=== PATIENT | female | born 1935 | race Caucasian/White ===

== ENCOUNTER 2016-08-16 11:19 | Emergency (ER) | payer MEDICARE, BC ==
[2016-08-16 12:14] VITALS: BP 153/68
[2016-08-16] MEDS ORDERED: Sodium Chloride 0.9% 10 ML Syringe FLUSH PRN (12:36)
[2016-08-16 13:15] LABS: CHLORIDE,CL 103 mmol/L (101-111); SODIUM,NA 140 mmol/L (135-145)
[2016-08-16] MEDS ORDERED: Iopamidol 612 MG/ML 100 ML Bottle IVPUSH ONE (15:10)
--- NOTE | 2016-08-16 15:50 | CT ---
CLINICAL HISTORY: 81-year-old hypertensive 189 pound female who is 1 month after a second total orth opedic hip replacement now experiencing some abdominal pain and urinary incontinence. Previous hyste rectomy. SCAN TECHNIQUE: Volume acquisition of data from an emergency unenhanced CT scan of the abdomen and p mag obtained with the patient lying supine on the Siemens multislice CT scanner [place], [place]. All data archived in the PACS system for storage, reformatting and st udy. INTERPRETATION: 1. Bilateral total hip prostheses and associated extensive "hardening" artifact obscuring pelvis (an d urinary bladder). 2. Diverticula sigmoid colon lower abdomen without current signs of associated inflammation, i.e., n o inflammatory "dirty" peritoneal fat and no sign of abscess. 3. Densely calcified "cast" normal caliber but ectatic aortoiliac vessels. No aneurysm. 4. Normal gallbladder. Unenhanced liver, atrophic pancreas, adrenal glands and kidneys normal. 5. Scoliosis, multilevel disc disease and hypertrophic arthritic changes of the spine. 6. No abdominal mass lesion, mesenteric/retroperitoneal lymphadenopathy, signs of mechanical bowel o bstruction, ascites or free intraperitoneal air. 7. Normal cardiac silhouette. Lung bases clear. CONCLUSION: Sigmoid diverticulosis. Bilateral hip replacements. Abnormal lumbar spine.
--- NOTE | 2016-08-17 02:11 | ER ---
SUBJECTIVE: The patient is an 81-year-old, very pleasant female, who has had multiple hip and back pain. She has had surgery at low back and recent hip surgery. She has had ongoing pain and understands that she will but comes in today because she has had some urinary incontinence that does not stop, she wonders why. She has had her urine culture before, it was negative. They check for UTI. She denies any new changes besides the urinary incontinence, she denies any hematuria, dysuria, hesitation, or frequency. She denies any specific falls or trauma. She has been in physical therapy. She is afraid she might have hurt her back with the exercises and then she began having the problems with incontinence, the incontinence began yesterday. She states she lost complete control of her bladder functions multiple times and has had some incontinence. She denies any numbness, tingling, or weakness in her lower extremities bilaterally. She denies any bowel incontinence. She has normal bowel function, normal flatus, no bleeding, no melena or BRBPR. She denies any perineal or saddle numbness. She states she did have all of these symptoms previously with exception of the urinary incontinence, and when she went to a chiropractor, he "fixed her back right up," again, however, there was never any urinary incontinence at that time. She states that she did go to Dr. Kovacs and he set up for an MRI at the beginning of August and had checked her urine and was found to not have a UTI and cultures were negative per her report. She denies any fevers, chills, or any new back pain. No abdominal pain. No chest pain or shortness of breath. PAST MEDICAL HISTORY: Chronic back pain, osteoarthritis, hip surgery, cataracts with cataract surgery, tonsillectomy, hyperlipidemia, hypertension, GERD, IBS, diverticulitis, diverticulosis, colonoscopies, D and C, hysterectomy, bladder repair, knee replacement, bilateral knee and right hip replacement, hypothyroidism, anxiety, depression, and CREST syndrome. CURRENT MEDICATIONS: Include: 1. Diltiazem 360 mg p.o. daily. 2. Lorazepam 1 mg p.o. daily. 3. Synthroid 50 mcg p.o. daily. 4. Cozaar 50 mg p.o. daily. 5. Sertraline 150 mg p.o. daily. 6. Simvastatin 20 mg p.o. daily. 7. Tizanidine 4 mg p.o. daily. ALLERGIES: To iodine, does not recall why. Sulfa causes itching. CT dye causes sweating. Some sort of anesthesia drug for surgery causes hallucinations, she is unsure. SOCIAL HISTORY: No substance abuse. REVIEW OF SYSTEMS: No fever, chills, nausea, or vomiting. No new falls, assault, or trauma. No head trauma, syncope, or near syncope. No ENT issues, neck pain, chest pain, or shortness of breath. No nausea or vomiting. No dysuria, hematuria, or hesitation, but she does have the urinary incontinence. No bowel incontinence and normal bowel function without any melena, BRBPR, constipation, or diarrhea. She has no perineal or saddle or lower extremity numbness, weakness, or tingling. No other neurologic changes besides the urinary incontinence. No recent illness. Please see HPI. She was checked for UTI and it was negative and cultures were negative. OBJECTIVE: Vital Signs: Height is 1.6 m. Weight is 86.2 kg. She is afebrile. Heart rate is 86, blood pressure 153/68, respiratory rate 16, and oxygen is 98% on room air. General: Very pleasant, talkative, smiling, interactive, appears in no pain, in no distress at this time. She states she feels fairly well on lying down. It is when she gets up and puts weight on her back that it hurts. HEENT: She is normocephalic and atraumatic. A and O x3. GCS of 15. She is a good historian. Neck: Nontender. Chest: Clear. CV: RRR. Skin: Clear. Extremities: Good pulses at all 4 extremities. Abdomen: Soft, benign. Back: No CVAT. She does not really have any specific hip tenderness when palpating the ball and socket joint over the lateral trochanters, she states this when she gets up that she has pain when she bears weight. There are no signs of trauma or bruising or crepitus. She has no calf tenderness. No signs of DVT. EMERGENCY ROOM COURSE: An IV was placed. Labs and CAT scan were ordered. She remained stable. She was very comfortable as long as she held still. Therefore, she was not given any pain medications. LABORATORY DATA/STUDIES: White count was normal. She has no anemia, platelets are normal. Differential not remarkable. Her sed rate was normal at 18. Her CMP was quite non-remarkable. Her CRP was less than 0.5. Her urine was yellow and clear, negative for protein, for sugar ketones, nitrites, did have trace leukocyte esterase, and had moderate blood. Did have occasional bacteriuria, it was sent for culture. The last culture was just negative and was done a short time ago. Therefore, we elected to just culture the urine and not treat her with antibiotics and this was discussed with her and she also agreed with this line of thinking. I did discuss all of her labs and workup with her, including the CAT scan, which showed multiple chronic changes mostly arthritic changes, but no acute findings. No mass-effect, free air, abscess, or any specific reasons why she should have urinary incontinence. She states she is dealing with the urine incontinence by wearing the pins and she is able to deal with it, but just wondering why it is there. I did call Dr. Kovacs's nurse, Shanique, and I discussed the patient's presenting symptoms for workup and CAT scan and blood work in detail and the fact that MRI has already been ordered by Dr. Kovacs for this patient and perhaps they can be moved up earlier, perhaps tomorrow this week, so further evaluation could be performed. I also advised that we repeat the blood culture and urine culture in case there was a change. She will review all of this with Dr. Kovacs and fill him in. ASSESSMENT: 1. Urinary incontinence of uncertain etiology. Recent evaluation for urinary tract infection and urine cultures has been negative. Further urine cultures and blood cultures have been performed. For blood workup as well as noncontrasted abdominopelvic CT, not showing any cause for urinary incontinence. 2. Chronic low back pain and hip pain with hip replacement and significant osteoarthritis. PLAN: The patient's course will be discussed with Dr. Kovacs via Dr. Kovacs's nurse, Shainque, and I have advised the patient to please call Dr. Kovacs's office tomorrow or if not today, to see if the MRI and was able to be removed up further, possibly tomorrow or least this week. Stay with family, fall precautions. Continue with meds. Continue with the pins and hygiene. Thoroughly discussed all the workup with the patient and her son-in-law, who is with her and wished to help her find the cause of her incontinence, it could possibly be UTI but it is cultured again. We will follow up and see how this turns out. [facility] /[id number]
== END 2016-08-16 18:05 | disposition home or self-care (01) ==
LOC: DL.ED 11:19
DX: R32 Unspecified urinary incontinence (principal); M54.5 Low back pain; G89.29 Other chronic pain; M19.90 Unspecified osteoarthritis, unspecified site; I10 Essential (primary) hypertension; K21.9 Gastro-esophageal reflux disease without esophagitis; F41.9 Anxiety disorder, unspecified; F32.9 Major depressive disorder, single episode, unspecified; E03.9 Hypothyroidism, unspecified; Z88.2 Allergy status to sulfonamides; Z91.041 Radiographic dye allergy status; Z98.49 Cataract extraction status, unspecified eye; Z98.890 Other specified postprocedural states; Z90.710 Acquired absence of both cervix and uterus
CPT/HCPCS: 36415; 74176; 80053; 81001; 85025; 85651; 86140; 87040; 87086; 87088; 87186; 99284

== ENCOUNTER 2018-09-24 19:07 | Emergency (ER) | payer MEDICARE, BC ==
[2018-09-24 19:27] VITALS: BP 160/75
--- NOTE | 2018-09-24 19:51 | EDM.PDOC ---
ED HPI GENERAL MEDICAL PROBLEM - General Chief Complaint: Gastrointestinal Problem Stated Complaint: A LOT OF RECKTAL BLEEDING Time Seen by Provider: 09/24/18 19:48 Source of Information: Reports: Patient History Limitations: Reports: No Limitations - History of Present Illness INITIAL COMMENTS - FREE TEXT/NARRATIVE: states had few bouts of bloody stools today. last one was ok. gives h/o IBS. states her abd would rumble alot first then when she has a BM it will get bloody and dark. presently feeling ok. - Related Data Allergies Allergy/AdvReac Type Severity Reaction Status Date / Time Iodinated Contrast- Oral and Allergy Sweating Verified 09/24/18 19:19 IV Dye [Iodinated Contrast Media - Oral and] iodine Allergy Cannot Verified 09/24/18 19:19 Remember Sulfa (Sulfonamide Allergy Itching Verified 09/24/18 19:19 Antibiotics) some anasthesia drug Allergy Hallucinati Uncoded 09/24/18 19:19 ons Home Meds: Home Meds Diltiazem HCl [Taztia Xt] 360 mg PO DAILY 10/22/14 [History] LORazepam 1 mg PO DAILY 10/22/14 [History] Levothyroxine [Synthroid] 50 mcg PO ACBREAKFAST 10/22/14 [History] Losartan [Cozaar] 50 mg PO DAILY 10/22/14 [History] Sertraline HCl 200 mg PO DAILY 10/22/14 [History] tiZANidine HCl [Tizanidine HCl] 4 mg PO DAILY 08/16/16 [History] atorvaSTATin [Lipitor] 10 mg PO DAILY 09/24/18 [History] Past Medical History HEENT History: Reports: Cataract Cardiovascular History: Reports: High Cholesterol, Hypertension Gastrointestinal History: Reports: GERD, Hemorrhoids, Irritable Bowel Syndrome Other Gastrointestinal History: 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: Musculoskeletal History: Reports: Fracture, Osteoporosis Psychiatric History: Reports: Anxiety, Depression Endocrine/Metabolic History: Reports: Hypothyroidism Other Immunologic History: Crest syndrome - Past Surgical History HEENT Surgical History: Reports: Cataract Surgery, Tonsillectomy GI Surgical History: Reports: Colonoscopy Female Surgical History: Reports: D&C, Hysterectomy, Other (See Below) Other Female Surgeries/Procedures: bladder repair Musculoskeletal Surgical History: Reports: Knee Replacement, Other (See Below) Other Musculoskeletal Surgeries/Procedures:: sterling knee and Rt. hip replacement Social & Family History - Family History Family Medical History: Noncontributory - Tobacco Use Smoking Status *Q: Unknown Ever Smoked Second Hand Smoke Exposure: No - Caffeine Use Caffeine Use: Reports: Coffee Caffeine Use Comment: occassional - Recreational Drug Use Recreational Drug Use: No ED ROS GENERAL - Review of Systems Review Of Systems: ROS reveals no pertinent complaints other than HPI. ED EXAM, GI/ABD - Physical Exam Exam: See Below Exam Limited By: No Limitations General Appearance: Alert, WD/WN, No Apparent Distress Ears: Hearing Grossly Normal Throat/Mouth: Normal Voice, No Airway Compromise Head: Atraumatic Neck: Non-Tender, Full Range of Motion Respiratory/Chest: No Respiratory Distress Cardiovascular: Regular Rate, Rhythm GI/Abdominal Exam: Soft, Non-Tender, Other (BS hyper) Neurological: Alert, Oriented, Normal Cognition, Normal Gait, No Motor/Sensory Deficits Psychiatric: Normal Affect, Normal Mood Skin Exam: Warm, Dry, Normal Color Lymphatic: No Adenopathy Course - Vital Signs Last Recorded V/S: Last Vital Signs Temp 36.6 C 09/24/18 19:26 Pulse 81 09/24/18 19:26 Resp 18 09/24/18 19:26 BP 160/75 H 09/24/18 19:26 Pulse Ox 92 L 09/24/18 19:26 - Orders/Labs/Meds Labs: Laboratory Tests 09/24/18 09/24/18 09/24/18 Range/Units 19:56 19:56 19:56 WBC 9.5 (5.0-10.0) 10^3/uL RBC 4.48 (4.2-5.4) 10^6/uL Hgb 13.2 (12.0-16.0) g/dL Hct 40.0 (37.0-47.0) % MCV 89.3 (80-100) fL MCH 29.5 (27.0-34.0) pg MCHC 33.0 (33.0-35.0) g/dL Plt Count 169 (150-450) 10^3/uL Neut % (Auto) 69.7 (42.2-75.2) % Lymph % (Auto) 15.7 L (20.5-50.1) % Holmes % (Auto) 9.1 H (2-8) % Eos % (Auto) 5.0 H (1.0-3.0) % Baso % (Auto) 0.5 (0.0-1.0) % PT 10.8 (9.0-12.0) SEC INR 1.1 (0.9-1.2) APTT 27.2 (22.0-34.0) SEC Sodium 137 (135-145) mmol/L Potassium 3.8 (3.6-5.0) mmol/L Chloride 104 (101-111) mmol/L Carbon Dioxide 23.0 (21.0-31.0) mmol/L Anion Gap 13.8 BUN 18 (7-18) mg/dL Creatinine 0.7 (0.6-1.3) mg/dL Est Cr Clr Drug Dosing 51.26 mL/min Estimated GFR (MDRD) > 60 BUN/Creatinine Ratio 25.71 Glucose 114 H (74-105) mg/dL Lactic Acid (0.5-2.2) mmol/L Calcium 9.0 (8.4-10.2) mg/dl Total Bilirubin 0.5 (0.2-1.0) mg/dL AST 18 (10-42) IU/L ALT 14 (10-60) IU/L Alkaline Phosphatase 61 (42-121) IU/L Total Protein 6.2 L (6.7-8.2) g/dl Albumin 3.8 (3.2-5.5) g/dl Globulin 2.4 Albumin/Globulin Ratio 1.58 04/28/19 Range/Units 19:56 WBC (5.0-10.0) 10^3/uL RBC (4.2-5.4) 10^6/uL Hgb (12.0-16.0) g/dL Hct (37.0-47.0) % MCV (80-100) fL MCH (27.0-34.0) pg MCHC (33.0-35.0) g/dL Plt Count (150-450) 10^3/uL Neut % (Auto) (42.2-75.2) % Lymph % (Auto) (20.5-50.1) % Holmes % (Auto) (2-8) % Eos % (Auto) (1.0-3.0) % Baso % (Auto) (0.0-1.0) % PT (9.0-12.0) SEC INR (0.9-1.2) APTT (22.0-34.0) SEC Sodium (135-145) mmol/L Potassium (3.6-5.0) mmol/L Chloride (101-111) mmol/L Carbon Dioxide (21.0-31.0) mmol/L Anion Gap BUN (7-18) mg/dL Creatinine (0.6-1.3) mg/dL Est Cr Clr Drug Dosing mL/min Estimated GFR (MDRD) BUN/Creatinine Ratio Glucose (74-105) mg/dL Lactic Acid 1.5 (0.5-2.2) mmol/L Calcium (8.4-10.2) mg/dl Total Bilirubin (0.2-1.0) mg/dL AST (10-42) IU/L ALT (10-60) IU/L Alkaline Phosphatase (42-121) IU/L Total Protein (6.7-8.2) g/dl Albumin (3.2-5.5) g/dl Globulin Albumin/Globulin Ratio - Re-Assessments/Exams Free Text/Narrative Re-Assessment/Exam: 09/24/18 21:00 results discussed with pt & family. pt had BM no bleeding like before had small red spot on toilet paper while wiping. Departure - Departure Time of Disposition: 21:01 Disposition: Home, Self-Care 01 Condition: Good Clinical Impression: Internal hemorrhoid, bleeding IBS (irritable bowel syndrome) Qualifiers: Irritable bowel syndrome type: without diarrhea Qualified Code(s): K58.9 - Irritable bowel syndrome without diarrhea - Discharge Information Forms: ED Department Discharge Additional Instructions: 1) rest 2) have liquid diet for tonight 3) see family doctor tomorrow for COLONOSCOPY 4) recheck if there is any change or concern
[2018-09-24 20:22] LABS: ANION GAP 13.8; CHLORIDE,CL 104 mmol/L (101-111); SODIUM,NA 137 mmol/L (135-145)
== END 2018-09-24 21:09 | disposition home or self-care (01) ==
LOC: DL.ED 19:07
DX: K58.9 Irritable bowel syndrome, unspecified (principal); K64.8 Other hemorrhoids; I10 Essential (primary) hypertension; Z88.2 Allergy status to sulfonamides; Z88.8 Allergy status to other drugs, medicaments and biological substances; Z79.899 Other long term (current) drug therapy
CPT/HCPCS: 36415; 80053; 83605; 85025; 85610; 85730; 99283

== ENCOUNTER 2021-07-29 13:06 | Inpatient (IN) | payer MEDICARE, BC ==
[2021-07-29] MEDS ORDERED: Sodium Chloride 0.9% 10 ML Syringe FLUSH PRN (15:42)
[2021-07-29] MEDS ORDERED: Lidocaine 1% 30 ML SDV INJECT ONE (15:42)
[2021-07-29] MEDS ORDERED: diphenhydrAMINE 50 MG/ML SDV IVPUSH ONE (15:43)
[2021-07-29 16:32] LABS: ANION GAP 13.6 mEq/L (7-13); CHLORIDE,CL 104 mmol/L (98-107); ESTIMATED GFR > 60; SODIUM,NA 142 mmol/L (136-145)
[2021-07-29] MEDS ORDERED: Morphine 2 MG/ML SYRINGE IVPUSH PRN (18:54)
[2021-07-29] MEDS ORDERED: Ondansetron 4 MG Tab.DIS PO PRN (18:54)
[2021-07-29] MEDS ORDERED: oxyCODONE 5 MG Tab PO PRN (18:54)
[2021-07-29] MEDS ORDERED: Docusate Sodium 100 MG Cap PO PRN (18:54)
[2021-07-29] MEDS ORDERED: Piperacillin/Tazobactam 3.375 GM in Sodium Chloride 0.9% 100 ML IV SCH (19:15)
[2021-07-29] MEDS ORDERED: Piperacillin/Tazobactam 3.375 GM in Sodium Chloride 0.9% 100 ML IV ONE (20:00)
[2021-07-29 20:32] LABS: CORONAVIRUS COVID-19 NAA NEGATIVE (NEGATIVE); RESPIRATORY SYNCYTIAL VIR NAA NEGATIVE (NEGATIVE)
[2021-07-29] MEDS: Omeprazole 20 MG Cap.CR PO SCH (20:32)
[2021-07-29] MEDS: Losartan 50 MG Tab PO SCH (22:26)
[2021-07-29] MEDS: Acetaminophen 325 MG Tab PO PRN (22:30)
[2021-07-30] MEDS: Piperacillin/Tazobactam 2.25 GM in Sodium Chloride 0.9% 50 ML IV SCH ×4 (01:58→21:35)
[2021-07-30] MEDS: Omeprazole 20 MG Cap.CR PO SCH ×2 (05:57→21:36)
[2021-07-30] MEDS: Levothyroxine 50 MCG Tab PO SCH (06:03)
[2021-07-30] MEDS: Saccharomyces Boulardii (Probiotic) 250 MG Cap PO SCH (08:34)
[2021-07-30] MEDS: Diltiazem 180 MG Cap.CD PO SCH (08:34)
[2021-07-30] MEDS: Sertraline 50 MG Tab PO SCH (08:34)
[2021-07-30] MEDS: Enoxaparin 40 MG/0.4 ML Syringe SUBCUT SCH (08:35)
[2021-07-30] MEDS: Aspirin 81 MG Tab.EC PO SCH (08:35)
[2021-07-30] MEDS: Lactulose Soln 10 GM/15 ML 30 ML UD Cup PO SCH (08:35)
[2021-07-30] MEDS: LORazepam 1 MG Tab PO SCH (08:37)
[2021-07-30] MEDS ORDERED: Losartan 50 MG Tab PO SCH (09:00)
[2021-07-30] MEDS: Sodium Chloride 0.9% 10 ML Syringe FLUSH PRN (17:35)
[2021-07-30] MEDS: Losartan 50 MG Tab PO SCH (21:36)
[2021-07-31] MEDS: Acetaminophen 325 MG Tab PO PRN ×2 (02:01→21:21)
[2021-07-31] MEDS: Piperacillin/Tazobactam 2.25 GM in Sodium Chloride 0.9% 50 ML IV SCH ×4 (02:04→20:37)
[2021-07-31] MEDS: Levothyroxine 50 MCG Tab PO SCH (06:14)
[2021-07-31] MEDS: Omeprazole 20 MG Cap.CR PO SCH ×2 (06:14→20:43)
[2021-07-31] MEDS: Diltiazem 180 MG Cap.CD PO SCH (09:22)
[2021-07-31] MEDS: LORazepam 1 MG Tab PO SCH (09:22)
[2021-07-31] MEDS: Aspirin 81 MG Tab.EC PO SCH (09:23)
[2021-07-31] MEDS: Saccharomyces Boulardii (Probiotic) 250 MG Cap PO SCH (09:23)
[2021-07-31] MEDS: Sertraline 50 MG Tab PO SCH (09:23)
[2021-07-31] MEDS: Enoxaparin 40 MG/0.4 ML Syringe SUBCUT SCH (09:24)
[2021-07-31] MEDS: Lactulose Soln 10 GM/15 ML 30 ML UD Cup PO SCH (09:32)
[2021-07-31] MEDS: Losartan 50 MG Tab PO SCH (21:20)
[2021-08-01] MEDS: Piperacillin/Tazobactam 2.25 GM in Sodium Chloride 0.9% 50 ML IV SCH ×4 (02:35→20:44)
[2021-08-01] MEDS: Levothyroxine 50 MCG Tab PO SCH (05:28)
[2021-08-01] MEDS: Omeprazole 20 MG Cap.CR PO SCH ×2 (05:28→20:45)
[2021-08-01 06:52] LABS: ANION GAP 13.1 mEq/L (7-13); CHLORIDE,CL 108 mmol/L (98-107); ESTIMATED GFR > 60; SODIUM,NA 144 mmol/L (136-145)
[2021-08-01] MEDS: Enoxaparin 40 MG/0.4 ML Syringe SUBCUT SCH (07:59)
[2021-08-01] MEDS: LORazepam 1 MG Tab PO SCH (07:59)
[2021-08-01] MEDS: Diltiazem 180 MG Cap.CD PO SCH (08:00)
[2021-08-01] MEDS: Aspirin 81 MG Tab.EC PO SCH (08:01)
[2021-08-01] MEDS: Saccharomyces Boulardii (Probiotic) 250 MG Cap PO SCH (08:01)
[2021-08-01] MEDS: Sertraline 50 MG Tab PO SCH ×2 (08:01→21:21)
[2021-08-01] MEDS: Lactulose Soln 10 GM/15 ML 30 ML UD Cup PO SCH ×2 (08:01→08:04)
[2021-08-01] MEDS: Acetaminophen 325 MG Tab PO PRN ×2 (08:16→20:46)
[2021-08-01] MEDS ORDERED: Carboxymethylcellulose Sodium 1% Ophth Gel 0.4 ML UD EYEBOTH PRN (19:24)
[2021-08-01] MEDS: Losartan 50 MG Tab PO SCH (20:46)
[2021-08-02] MEDS: Piperacillin/Tazobactam 2.25 GM in Sodium Chloride 0.9% 50 ML IV SCH ×4 (02:09→20:19)
[2021-08-02] MEDS: Sodium Chloride 0.9% 10 ML Syringe FLUSH PRN ×2 (02:12→20:19)
[2021-08-02] MEDS: Levothyroxine 50 MCG Tab PO SCH (06:05)
[2021-08-02] MEDS: Omeprazole 20 MG Cap.CR PO SCH ×2 (06:05→20:21)
[2021-08-02] MEDS: Saccharomyces Boulardii (Probiotic) 250 MG Cap PO SCH (08:37)
[2021-08-02] MEDS: LORazepam 1 MG Tab PO SCH (08:37)
[2021-08-02] MEDS: Diltiazem 180 MG Cap.CD PO SCH (08:38)
[2021-08-02] MEDS: Aspirin 81 MG Tab.EC PO SCH (08:38)
[2021-08-02] MEDS: Enoxaparin 40 MG/0.4 ML Syringe SUBCUT SCH (08:39)
[2021-08-02] MEDS: Lactulose Soln 10 GM/15 ML 30 ML UD Cup PO SCH (08:39)
[2021-08-02] MEDS: Acetaminophen 325 MG Tab PO PRN ×2 (09:20→20:22)
[2021-08-02] MEDS: Losartan 50 MG Tab PO SCH (20:21)
[2021-08-02] MEDS: Sertraline 50 MG Tab PO SCH (20:21)
[2021-08-03] MEDS: Piperacillin/Tazobactam 2.25 GM in Sodium Chloride 0.9% 50 ML IV SCH ×4 (02:12→20:53)
[2021-08-03] MEDS: Acetaminophen 325 MG Tab PO PRN ×4 (05:05→21:31)
[2021-08-03] MEDS: Omeprazole 20 MG Cap.CR PO SCH ×2 (05:05→21:31)
[2021-08-03] MEDS: Levothyroxine 50 MCG Tab PO SCH (05:05)
[2021-08-03] MEDS: Sodium Chloride 0.9% 10 ML Syringe FLUSH PRN ×2 (07:57→13:28)
[2021-08-03] MEDS: Diltiazem 180 MG Cap.CD PO SCH (09:26)
[2021-08-03] MEDS: Saccharomyces Boulardii (Probiotic) 250 MG Cap PO SCH (09:27)
[2021-08-03] MEDS: LORazepam 1 MG Tab PO SCH (09:27)
[2021-08-03] MEDS: Aspirin 81 MG Tab.EC PO SCH (09:27)
[2021-08-03] MEDS: Lactulose Soln 10 GM/15 ML 30 ML UD Cup PO SCH (09:29)
[2021-08-03] MEDS: Enoxaparin 40 MG/0.4 ML Syringe SUBCUT SCH (09:29)
[2021-08-03] MEDS: Losartan 50 MG Tab PO SCH (21:31)
[2021-08-03] MEDS: Sertraline 50 MG Tab PO SCH (21:31)
[2021-08-03] MEDS: Loperamide 2 MG Cap PO PRN (21:31)
[2021-08-04] MEDS: Piperacillin/Tazobactam 2.25 GM in Sodium Chloride 0.9% 50 ML IV SCH ×4 (02:05→19:36)
[2021-08-04] MEDS: Levothyroxine 50 MCG Tab PO SCH (05:35)
[2021-08-04] MEDS: Omeprazole 20 MG Cap.CR PO SCH ×2 (05:35→20:51)
[2021-08-04] MEDS: Loperamide 2 MG Cap PO PRN ×2 (05:54→13:59)
[2021-08-04] MEDS: LORazepam 1 MG Tab PO SCH (08:36)
[2021-08-04] MEDS: Diltiazem 180 MG Cap.CD PO SCH (08:36)
[2021-08-04] MEDS: Enoxaparin 40 MG/0.4 ML Syringe SUBCUT SCH (08:36)
[2021-08-04] MEDS: Saccharomyces Boulardii (Probiotic) 250 MG Cap PO SCH ×2 (08:37→20:51)
[2021-08-04] MEDS: Aspirin 81 MG Tab.EC PO SCH (08:37)
[2021-08-04] MEDS: Lactulose Soln 10 GM/15 ML 30 ML UD Cup PO SCH (11:47)
[2021-08-04] MEDS: Acetaminophen 325 MG Tab PO PRN ×2 (13:14→19:27)
[2021-08-04] MEDS: Sodium Chloride 0.9% 10 ML Syringe FLUSH PRN ×3 (13:59→19:36)
[2021-08-04] MEDS: Sertraline 50 MG Tab PO SCH (20:51)
[2021-08-04] MEDS: Losartan 50 MG Tab PO SCH (20:51)
[2021-08-05] MEDS: Sodium Chloride 0.9% 10 ML Syringe FLUSH PRN ×3 (02:06→20:08)
[2021-08-05] MEDS: Piperacillin/Tazobactam 2.25 GM in Sodium Chloride 0.9% 50 ML IV SCH ×4 (02:07→20:08)
[2021-08-05] MEDS: Loperamide 2 MG Cap PO PRN ×2 (02:23→09:21)
[2021-08-05] MEDS: Omeprazole 20 MG Cap.CR PO SCH ×2 (05:09→20:52)
[2021-08-05] MEDS: Acetaminophen 325 MG Tab PO PRN ×3 (05:10→23:02)
[2021-08-05] MEDS: Levothyroxine 50 MCG Tab PO SCH (05:10)
[2021-08-05] MEDS: Enoxaparin 40 MG/0.4 ML Syringe SUBCUT SCH (09:11)
[2021-08-05] MEDS: Aspirin 81 MG Tab.EC PO SCH (09:12)
[2021-08-05] MEDS: LORazepam 1 MG Tab PO SCH (09:12)
[2021-08-05] MEDS: Saccharomyces Boulardii (Probiotic) 250 MG Cap PO SCH ×2 (09:12→20:52)
[2021-08-05] MEDS: Diltiazem 180 MG Cap.CD PO SCH (09:12)
[2021-08-05] MEDS: Calcium Carbonate 500 MG Tab.Chew PO PRN ×2 (17:53→23:02)
[2021-08-05] MEDS: Sertraline 50 MG Tab PO SCH (20:52)
[2021-08-05] MEDS: Losartan 50 MG Tab PO SCH (20:52)
[2021-08-06] MEDS: Sodium Chloride 0.9% 10 ML Syringe FLUSH PRN (01:47)
[2021-08-06] MEDS: Piperacillin/Tazobactam 2.25 GM in Sodium Chloride 0.9% 50 ML IV SCH ×3 (01:47→14:49)
[2021-08-06] MEDS: Loperamide 2 MG Cap PO PRN ×2 (03:06→09:19)
[2021-08-06] MEDS: Omeprazole 20 MG Cap.CR PO SCH (06:24)
[2021-08-06] MEDS: Levothyroxine 50 MCG Tab PO SCH (06:24)
[2021-08-06 07:23] LABS: CHLORIDE,CL 109 mmol/L (98-107); ESTIMATED GFR > 60; SODIUM,NA 145 mmol/L (136-145)
[2021-08-06] MEDS: Acetaminophen 325 MG Tab PO PRN (08:12)
[2021-08-06] MEDS: Saccharomyces Boulardii (Probiotic) 250 MG Cap PO SCH (08:15)
[2021-08-06] MEDS: LORazepam 1 MG Tab PO SCH (08:15)
[2021-08-06] MEDS: Diltiazem 180 MG Cap.CD PO SCH (08:15)
[2021-08-06] MEDS: Aspirin 81 MG Tab.EC PO SCH (08:16)
[2021-08-06] MEDS: Enoxaparin 40 MG/0.4 ML Syringe SUBCUT SCH (08:16)
[2021-08-06 12:17] VITALS: BP 116/51; PULSE 72
== END 2021-08-06 16:00 | disposition home health service (06) | DRG 603 ==
LOC: DL.ED 13:06 → DL.MS 18:13
PROVIDERS: ADMIT Internal Medicine; ATTEND Internal Medicine
PROC: 0H9HX0Z Drainage of Right Upper Leg Skin with Drainage Device, External Approach (ICD-10-PCS; principal; 2021-07-29)
DX: L02.415 Cutaneous abscess of right lower limb (principal); L03.115 Cellulitis of right lower limb; Z96.641 Presence of right artificial hip joint; E78.00 Pure hypercholesterolemia, unspecified; M34.1 CR(E)ST syndrome; E03.9 Hypothyroidism, unspecified; K58.9 Irritable bowel syndrome, unspecified; M81.0 Age-related osteoporosis without current pathological fracture; Z96.653 Presence of artificial knee joint, bilateral; I10 Essential (primary) hypertension; K21.9 Gastro-esophageal reflux disease without esophagitis; Z20.822 Contact with and (suspected) exposure to COVID-19; L89.151 Pressure ulcer of sacral region, stage 1; E78.5 Hyperlipidemia, unspecified; Z91.041 Radiographic dye allergy status; F32.A Depression, unspecified; F41.9 Anxiety disorder, unspecified; Z90.710 Acquired absence of both cervix and uterus; Z79.890 Hormone replacement therapy; Z79.82 Long term (current) use of aspirin; Z79.899 Other long term (current) drug therapy; Z90.89 Acquired absence of other organs; Z98.890 Other specified postprocedural states; Z88.2 Allergy status to sulfonamides; Z88.8 Allergy status to other drugs, medicaments and biological substances; Z87.19 Personal history of other diseases of the digestive system; Z98.42 Cataract extraction status, left eye; Z98.41 Cataract extraction status, right eye
CPT/HCPCS: 0241U; 10060; 36415; 73700; 76881; 80048; 80053; 80202; 83605; 85025; 85651; 86140; 87040; 87070; 87205; 96365; 96375; 97116; 97161; 99284; 99232; 99239; A9270-GY; J1200; J1650; J2543; J3370; J3490; J7050

== ENCOUNTER 2022-11-13 09:36 | Emergency (ER) | payer MEDICARE, BC ==
[2022-11-13 12:27] VITALS: BP 147/74; PULSE 83
== END 2022-11-13 12:22 | disposition home or self-care (01) ==
LOC: DL.ED 09:36
DX: S70.12XA Contusion of left thigh, initial encounter (principal); E78.00 Pure hypercholesterolemia, unspecified; I10 Essential (primary) hypertension; K21.9 Gastro-esophageal reflux disease without esophagitis; E03.9 Hypothyroidism, unspecified; Z91.041 Radiographic dye allergy status; Z88.2 Allergy status to sulfonamides; Z88.4 Allergy status to anesthetic agent; Z79.899 Other long term (current) drug therapy; Z79.82 Long term (current) use of aspirin; W01.0XXA Fall on same level from slipping, tripping and stumbling without subsequent striking against object, initial encounter
CPT/HCPCS: 73000-LT; 73030-LT; 99283

== ENCOUNTER 2023-08-15 05:27 | Day surgery (SDC) | payer MEDICARE, BC ==
[2023-08-15] MEDS ORDERED: fentaNYL 100 MCG/2 ML SDV IV ONE (05:28)
[2023-08-15] MEDS ORDERED: Midazolam 1 MG/ML 2 ML SDV IV ONE (05:28)
[2023-08-15] MEDS: Dextrose 5%-0.45% NaCl 1,000 ML IV SCH (06:04)
[2023-08-15] MEDS ORDERED: Midazolam 1 MG/ML 2 ML SDV ONE (06:08)
[2023-08-15] MEDS ORDERED: fentaNYL 100 MCG/2 ML SDV ONE (06:08)
[2023-08-15] MEDS: fentaNYL 100 MCG/2 ML SDV IV ONE ×2 (06:25→06:28)
[2023-08-15] MEDS: Midazolam 1 MG/ML 2 ML SDV IV ONE (06:26)
[2023-08-15 07:09] VITALS: PULSE 66
[2023-08-15 07:32] VITALS: BP 168/64
== END 2023-08-15 08:35 | disposition home or self-care (01) ==
LOC: DL.ENDO 05:27
PROVIDERS: ATTEND Internal Medicine Gastroenterology
DX: K63.5 Polyp of colon (principal); K57.30 Diverticulosis of large intestine without perforation or abscess without bleeding; I10 Essential (primary) hypertension; E78.5 Hyperlipidemia, unspecified; E03.9 Hypothyroidism, unspecified; D64.9 Anemia, unspecified; M19.90 Unspecified osteoarthritis, unspecified site; D63.8 Anemia in other chronic diseases classified elsewhere; Z88.9 Allergy status to unspecified drugs, medicaments and biological substances; Z91.041 Radiographic dye allergy status; Z88.5 Allergy status to narcotic agent
CPT/HCPCS: 87077; 88305; J2250; J3010; J7042

== ENCOUNTER 2023-08-16 05:31 | Day surgery (SDC) | payer MEDICARE, BC ==
[2023-08-16] MEDS ORDERED: fentaNYL 100 MCG/2 ML SDV IV ONE (05:32)
[2023-08-16] MEDS ORDERED: Midazolam 1 MG/ML 2 ML SDV IV ONE (05:32)
[2023-08-16] MEDS: Dextrose 5%-0.45% NaCl 1,000 ML IV SCH (05:51)
[2023-08-16] MEDS ORDERED: fentaNYL 100 MCG/2 ML SDV ONE (06:04)
[2023-08-16] MEDS ORDERED: Midazolam 1 MG/ML 2 ML SDV ONE (06:04)
[2023-08-16] MEDS: fentaNYL 100 MCG/2 ML SDV IV ONE ×3 (06:16→06:29)
[2023-08-16] MEDS: Midazolam 1 MG/ML 2 ML SDV IV ONE ×5 (06:19→06:38)
[2023-08-16 10:40] VITALS: BP 121/61; PULSE 85
== END 2023-08-16 09:15 | disposition home or self-care (01) ==
LOC: DL.ENDO 05:31
PROVIDERS: ATTEND Internal Medicine Gastroenterology
DX: K57.30 Diverticulosis of large intestine without perforation or abscess without bleeding (principal); D64.9 Anemia, unspecified; I10 Essential (primary) hypertension; M19.90 Unspecified osteoarthritis, unspecified site; E03.9 Hypothyroidism, unspecified; E78.5 Hyperlipidemia, unspecified; Z91.041 Radiographic dye allergy status; Z88.8 Allergy status to other drugs, medicaments and biological substances; Z88.9 Allergy status to unspecified drugs, medicaments and biological substances; Z88.2 Allergy status to sulfonamides; Z86.010 Personal history of colon polyps
CPT/HCPCS: J2250; J3010; J7042

== ENCOUNTER 2023-10-03 22:54 | Emergency (ER) | payer MEDICARE, BC ==
[2023-10-03 23:30] VITALS: BP 171/85; PULSE 82
== END 2023-10-04 00:20 | disposition home or self-care (01) ==
LOC: DL.ED 22:54
DX: S01.81XA Laceration without foreign body of other part of head, initial encounter (principal); I10 Essential (primary) hypertension; E78.00 Pure hypercholesterolemia, unspecified; K21.9 Gastro-esophageal reflux disease without esophagitis; E03.9 Hypothyroidism, unspecified; Z88.6 Allergy status to analgesic agent; Z88.8 Allergy status to other drugs, medicaments and biological substances; Z91.048 Other nonmedicinal substance allergy status; Z91.041 Radiographic dye allergy status; Z88.5 Allergy status to narcotic agent; Z88.2 Allergy status to sulfonamides; Z88.4 Allergy status to anesthetic agent; Z79.899 Other long term (current) drug therapy; Z79.82 Long term (current) use of aspirin; Z90.710 Acquired absence of both cervix and uterus; W22.8XXA Striking against or struck by other objects, initial encounter; Y92.009 Unspecified place in unspecified non-institutional (private) residence as the place of occurrence of the external cause
CPT/HCPCS: 12011; 99283

== ENCOUNTER 2024-02-21 11:14 | Emergency (ER) | payer MEDICARE, BC ==
[2024-02-21] MEDS ORDERED: Sodium Chloride 0.9% 10 ML Syringe FLUSH PRN (11:39)
[2024-02-21 11:57] VITALS: BP 160/92; PULSE 96
[2024-02-21 12:08] LABS: BASOPHILS PERCENT AUTO 0.4 % (0.0-1.0); EOSINOPHILS PERCENT AUTO 0.9 % (1.0-3.0); HEMATOCRIT 39.3 % (37.0-47.0); HEMOGLOBIN 12.4 g/dL (12.0-16.0); LYMPHOCYTES PERCENT AUTO 14.3 % (20.5-50.1); MEAN CORPUSCULAR HEMOGLOBIN 28.2 pg (27.0-34.0); MEAN CORPUSCULAR HGB CONC 31.6 g/dL (33.0-35.0); MEAN CORPUSCULAR VOLUME 89.5 fL (80-100); MONOCYTES PERCENT AUTO 7.7 % (2-8); NEUTROPHILS PERCENT AUTO 76.7 % (42.2-75.2); PLATELET COUNT,PLT 144 10^3/uL (150-450); RED BLOOD CELL COUNT 4.39 10^6/uL (4.2-5.4); WHITE BLOOD CELL COUNT,WBC 7.9 10^3/uL (5.0-10.0)
[2024-02-21 12:30] LABS: LACTIC ACID 0.8 mmol/L (0.4-2.0)
[2024-02-21 12:37] LABS: A/G RATIO 1.3; ALBUMIN 3.6 g/dL (3.4-5.0); ANION GAP 18.3 mEq/L (7-13); BILIRUBIN TOTAL 0.6 mg/dL (0.2-1.0); BUN/CREATININE RATIO 23.5 (No establ ref range); C-REACTIVE PROTEIN 1.22 ng/dL (<=0.50); CALCIUM 9.7 mg/dL (8.5-10.1); CREATININE 0.81 mg/dL (0.55-1.02); EST CRCL DRUG DOSING (CG) 39.1 mL/min; MAGNESIUM 1.8 mg/dL (1.8-2.4); POTASSIUM,K 4.3 mmol/L (3.5-5.1); PROTEIN TOTAL,TP 6.4 g/dL (6.4-8.2); TSH ULTRASENSITIVE 1.43 uIU/mL (0.36-3.74)
[2024-02-21] MEDS: Sodium Chloride 0.9% 1,000 ML IV ONE (12:57)
[2024-02-21 13:22] LABS: APPEARANCE,URINE CLEAR (CLEAR); BILIRUBIN,URINE NEGATIVE (NEGATIVE); COLOR,URINE YELLOW (YELLOW); GLUCOSE,URINE NEGATIVE (NEGATIVE); KETONES,URINE 40 (NEGATIVE); LEUKOCYTE ESTERASE,URINE NEGATIVE (NEGATIVE); NITRITE,URINE NEGATIVE (NEGATIVE); OCCULT BLOOD,URINE SMALL (NEGATIVE); PH,URINE 5.5 (5.0-9.0); PROTEIN,URINE NEGATIVE (NEGATIVE); UROBILINOGEN,URINE 0.2 mg/dL (0.2-1.0)
[2024-02-21 13:32] LABS: AMPHETAMINES,URINE NEGATIVE (NEGATIVE); BARBITURATES,URINE NEGATIVE (NEGATIVE); BENZODIAZEPINE,URINE POSITIVE (NEGATIVE); MDMA (ECSTASY), URINE NEGATIVE (NEGATIVE); METHADONE,URINE NEGATIVE (NEGATIVE); METHAMPHETAMINES,URINE NEGATIVE (NEGATIVE); OPIATES,URINE NEGATIVE (NEGATIVE); OXYCODONE,URINE NEGATIVE (NEGATIVE); PHENCYCLIDINE,URINE NEGATIVE (NEGATIVE); TCA,URINE NEGATIVE (NEGATIVE)
[2024-02-21 13:36] LABS: BACTERIA,URINE RARE /HPF (0-FEW/HPF); EPITHELIAL CELLS,URINE RARE /HPF (NOT SEEN); MUCUS,URINE OCCASIONAL /LPF (NOT SEEN); RBC,URINE 0-5 /HPF (0-5); WBC,URINE NOT SEEN /HPF (0-5/HPF)
[2024-02-21] MEDS: Iopamidol 612 MG/ML 100 ML Bottle IVPUSH ONE (14:15)
== END 2024-02-21 16:32 | disposition home or self-care (01) ==
LOC: DL.ED 11:14
DX: R41.0 Disorientation, unspecified (principal); I10 Essential (primary) hypertension; K21.9 Gastro-esophageal reflux disease without esophagitis; E78.00 Pure hypercholesterolemia, unspecified; E03.9 Hypothyroidism, unspecified; Z88.2 Allergy status to sulfonamides; Z88.8 Allergy status to other drugs, medicaments and biological substances; Z91.041 Radiographic dye allergy status; Z79.82 Long term (current) use of aspirin; Z79.899 Other long term (current) drug therapy; Z90.710 Acquired absence of both cervix and uterus
CPT/HCPCS: 36415; 70450; 74177; 80053; 80305; 81001; 82947; 83605; 83735; 84443; 85025; 86140; 87040; 87804; 96360; 99285; J7030; Q9967; U0002

== ENCOUNTER 2024-03-10 15:54 | Emergency (ER) | payer MEDICARE, BC ==
[2024-03-10 16:22] VITALS: BP 138/57; PULSE 83
[2024-03-10 16:44] LABS: BASOPHILS PERCENT AUTO 0.6 % (0.0-1.0); EOSINOPHILS PERCENT AUTO 3.3 % (1.0-3.0); HEMATOCRIT 34.5 % (37.0-47.0); HEMOGLOBIN 10.6 g/dL (12.0-16.0); LYMPHOCYTES PERCENT AUTO 21.3 % (20.5-50.1); MEAN CORPUSCULAR HEMOGLOBIN 28.1 pg (27.0-34.0); MEAN CORPUSCULAR HGB CONC 30.7 g/dL (33.0-35.0); MEAN CORPUSCULAR VOLUME 91.5 fL (80-100); NEUTROPHILS PERCENT AUTO 64.8 % (42.2-75.2); PLATELET COUNT,PLT 146 10^3/uL (150-450); RED BLOOD CELL COUNT 3.77 10^6/uL (4.2-5.4); WHITE BLOOD CELL COUNT,WBC 8.3 10^3/uL (5.0-10.0)
[2024-03-10 17:06] LABS: A/G RATIO 1.18; ALBUMIN 3.3 g/dL (3.4-5.0); BILIRUBIN TOTAL 0.2 mg/dL (0.2-1.0); BUN/CREATININE RATIO 28.9 (No establ ref range); CALCIUM 9.6 mg/dL (8.5-10.1); CREATININE 0.9 mg/dL (0.55-1.02); EST CRCL DRUG DOSING (CG) 35.74 mL/min; PROTEIN TOTAL,TP 6.1 g/dL (6.4-8.2)
[2024-03-10 17:11] LABS: APPEARANCE,URINE CLEAR (CLEAR); BILIRUBIN,URINE NEGATIVE (NEGATIVE); COLOR,URINE YELLOW (YELLOW); GLUCOSE,URINE NEGATIVE (NEGATIVE); KETONES,URINE NEGATIVE (NEGATIVE); LEUKOCYTE ESTERASE,URINE TRACE (NEGATIVE); NITRITE,URINE NEGATIVE (NEGATIVE); OCCULT BLOOD,URINE TRACE-LYSED (NEGATIVE); PROTEIN,URINE NEGATIVE (NEGATIVE); UROBILINOGEN,URINE 0.2 mg/dL (0.2-1.0)
[2024-03-10 17:20] LABS: WBC,URINE 0-5 /HPF (0-5/HPF)
[2024-03-10 17:21] LABS: AMORPHOUS SEDIMENT,URINE FEW /HPF (NOT SEEN); BACTERIA,URINE FEW /HPF (0-FEW/HPF); EPITHELIAL CELLS,URINE FEW /HPF (NOT SEEN); MUCUS,URINE MODERATE /LPF (NOT SEEN)
[2024-03-10 17:56] LABS: CALCIUM 9.5 mg/dL (8.5-10.1); CREATININE 0.84 mg/dL (0.55-1.02); EST CRCL DRUG DOSING (CG) 38.29 mL/min
[2024-03-10] MEDS: Sodium Chloride 0.9% 1,000 ML IV ONE (17:58)
[2024-03-10] MEDS: Calcium Gluconate 10% 1 GM/10 ML SDV IVPUSH ONE (17:58)
== END 2024-03-10 19:01 | disposition home or self-care (01) ==
LOC: DL.ED 15:54
DX: S00.93XA Contusion of unspecified part of head, initial encounter (principal); I10 Essential (primary) hypertension; E78.00 Pure hypercholesterolemia, unspecified; E03.9 Hypothyroidism, unspecified; K21.9 Gastro-esophageal reflux disease without esophagitis; M19.90 Unspecified osteoarthritis, unspecified site; Z90.710 Acquired absence of both cervix and uterus; Z88.2 Allergy status to sulfonamides; Z88.4 Allergy status to anesthetic agent; Z88.5 Allergy status to narcotic agent; Z88.8 Allergy status to other drugs, medicaments and biological substances; Z79.890 Hormone replacement therapy; Z79.82 Long term (current) use of aspirin; Z79.2 Long term (current) use of antibiotics; Z79.899 Other long term (current) drug therapy; Z91.041 Radiographic dye allergy status; W01.10XA Fall on same level from slipping, tripping and stumbling with subsequent striking against unspecified object, initial encounter
CPT/HCPCS: 36415; 70450; 80048; 80053; 81001; 84484; 85025; 87086; 93005; 93010; 96361; 96374; 99284; 99284-25; J0612; J7030

== ENCOUNTER 2025-05-11 18:52 | Emergency (ER) | payer MEDICARE, BC ==
[2025-05-11] MEDS ORDERED: Sodium Chloride 0.9% 10 ML Syringe FLUSH PRN (19:17)
[2025-05-11 19:56] LABS: BASOPHILS PERCENT AUTO 0.4 % (0.0-1.0); EOSINOPHILS PERCENT AUTO 3.7 % (1.0-3.0); LYMPHOCYTES PERCENT AUTO 13.3 % (20.5-50.1); MONOCYTES PERCENT AUTO 8.8 % (2-8); NEUTROPHILS PERCENT AUTO 73.8 % (42.2-75.2); PLATELET COUNT,PLT 166 10^3/uL (150-450); RED BLOOD CELL COUNT 4.19 10^6/uL (4.2-5.4); WHITE BLOOD CELL COUNT,WBC 10.4 10^3/uL (5.0-10.0)
[2025-05-11 20:09] LABS: INR 1.1 (0.9-1.2)
[2025-05-11 20:15] LABS: ALANINE AMINOTRANSFERASE,ALT 15.0 U/L (14-59); ASPARTATE AMNIOTRANSFERASE,AST 11.0 U/L (15-37); BILIRUBIN TOTAL 0.3 mg/dL (0.2-1.0); BLOOD UREA NITROGEN,BUN 21.0 mg/dL (7-18); CARBON DIOXIDE,CO2 29.0 mmol/L (21-32); CHLORIDE,CL 105.0 mmol/L (98-107); CREATININE 0.87 mg/dL (0.55-1.02); EST CRCL DRUG DOSING (CG) 36.26 mL/min; GLUCOSE RANDOM 101.0 mg/dL (70-99); POTASSIUM,K 4.3 mmol/L (3.5-5.1); PROTEIN TOTAL,TP 6.3 g/dL (6.4-8.2); SODIUM,NA 142.0 mmol/L (136-145)
[2025-05-11 20:16] LABS: A/G RATIO 1.03; ESTIMATED GFR 64.0 mL/min (>=60)
[2025-05-11 20:31] LABS: APPEARANCE,URINE CLEAR (CLEAR); GLUCOSE,URINE NEGATIVE (NEGATIVE); OCCULT BLOOD,URINE TRACE-INTACT (NEGATIVE)
[2025-05-11 20:46] LABS: EPITHELIAL CELLS,URINE FEW /HPF (NOT SEEN)
[2025-05-11 20:54] VITALS: BP 146/65; PULSE 77
== END 2025-05-11 21:02 | disposition home or self-care (01) ==
LOC: DL.ED 18:52
DX: R41.0 Disorientation, unspecified (principal); I10 Essential (primary) hypertension; E03.9 Hypothyroidism, unspecified; E78.00 Pure hypercholesterolemia, unspecified; K21.9 Gastro-esophageal reflux disease without esophagitis; M19.90 Unspecified osteoarthritis, unspecified site; Z79.899 Other long term (current) drug therapy; Z79.890 Hormone replacement therapy; Z88.8 Allergy status to other drugs, medicaments and biological substances; Z91.048 Other nonmedicinal substance allergy status; Z88.2 Allergy status to sulfonamides; Z91.041 Radiographic dye allergy status; Z88.5 Allergy status to narcotic agent; Z90.710 Acquired absence of both cervix and uterus
CPT/HCPCS: 36415; 70450; 80053; 81001; 83735; 85025; 85610; 99285